=== PATIENT | female | born 1960 | race Caucasian/White ===

== ENCOUNTER 2017-02-18 20:03 | Emergency (ER) | payer BC ==
--- NOTE | 2017-02-18 20:13 | Emergency Department Record ---
History of Present Illness - General Chief Complaint: Hypertension Stated Complaint: HTN Time Seen by Provider: 02/18/17 20:13 Source: Patient, Family Mode of Arrival: Ambulatory Limitations: No limitations - History of Present Illness Initial Comments: 56 yo female presents with concerns about her blood pressure. She reports she has not seen a family doctor in seven years. For several months she has been having headaches. No vision changes. Yesterday she had some transient nausea and vomiting. Today those symptoms returned and she felt dizzy at that time. Those symptoms have resolved. No weakness, vision or speech changes. No coordination changes. No memory changes. Her daughter's boyfriend is an emergency medicine resident. He has been monitoring her BP and noted it has been elevated. No chest pain, shortness or breath, back pain or abdominal pain. MD Complaint: Dizziness, Lightheadedness -: Week(s) Timing: Gradual onset Description: Lightheadedness History of Same: No History of Trauma: No Severity: Mild Improves With: Nothing Worsens With: Nothing Associated Symptoms: Denies other symptoms - [place] Coma Scale Eye Response: (4) Open spontaneously Motor Response: (6) Obeys commands Verbal Response: (5) Oriented [place] Total: 15 - Symptoms of Stroke Baseline State: Baseline State - Related Data Previous Rx's Medication Instructions Recorded Hydrochlorothiazide 12.5 mg PO DAILY #30 capsule 02/18/17 Allergies Allergy/AdvReac Type Severity Reaction Status Date / Time Opioids - Morphine Analogues Allergy Unknown VOMITING Verified 02/18/17 20:22 Opioids-Methadone and Related Allergy Unknown VOMITING Verified 02/18/17 20:22 propoxyphene Allergy Unknown VOMITING Verified 02/18/17 20:22 latex Allergy RASH Verified 02/18/17 20:22 Review of Systems Constitutional: Denies: Chills, Fever, Malaise, Night sweats, Weakness Eyes: Denies: Eye discharge, Eye pain, Photophobia, Vision change ENT: Denies: Congestion, Throat pain Respiratory: Denies: Cough, Dyspnea, Hemoptysis, Stridor, Wheezes Cardiovascular: Denies: Arrhythmia, Chest pain, Dyspnea on exertion, Edema, Murmurs, Palpitations, Syncope Endocrine: Denies: Fatigue, Polydipsia, Polyuria Gastrointestinal: Reports: Nausea, Vomiting. Denies: Abdominal pain, Diarrhea Genitourinary: Denies: Dyspareunia, Dysuria, Urgency Musculoskeletal: Denies: Arthralgia, Back pain, Joint swelling, Myalgia Skin: Denies: Bruising, Change in color, Rash Neurological: Reports: Headache (intermittent for seveal months), Vertigo. Denies: Abnormal gait, Confusion, Numbness, Paresthesias, Seizure, Tingling, Tremors, Weakness Psychiatric: Denies: Anxiety Hematological/Lymphatic: Denies: Blood Clots, Easy bleeding, Easy bruising, Swollen glands Physical Exam - General General Appearance: Alert, Oriented x3, Cooperative, No acute distress, Other ( Well appearing, no distress, appears healthy as a general impression) Limitations: No limitations - Head Head exam: Normal inspection - Eye Eye exam: Normal appearance, PERRL, EOMI. negative: Conjunctival injection, Nystagmus, Periorbital swelling - ENT ENT exam: Normal exam, Mucous membranes moist Ear exam: Normal external inspection. negative: External canal tenderness Nasal Exam: Normal inspection. negative: Discharge, Sinus tenderness Mouth exam: Normal external inspection, Tongue normal Teeth exam: Normal inspection. negative: Dental caries Throat exam: Normal inspection. negative: Tonsillar erythema, Tonsillar exudate - Neck Neck exam: Normal inspection, Full ROM, Other (No bruits). negative: Lymphadenopathy, Tenderness, Thyromegaly - Respiratory Respiratory exam: Normal lung sounds bilaterally. negative: Respiratory distress - Cardiovascular Cardiovascular Exam: Regular rate, Normal rhythm, Normal heart sounds. negative : Diastolic murmur, Systolic murmur Peripheral Pulses: 2+: Radial (R), Radial (L) - GI/Abdominal GI/Abdominal exam: Soft. negative: Tenderness - Rectal Rectal exam: Deferred - exam: Deferred - Extremities Extremities exam: Normal inspection, Full ROM, Normal capillary refill. negative: Pedal edema, Tenderness - Back Back exam: Reports: Normal inspection, Full ROM. Denies: CVA tenderness (R), CVA tenderness (L), Muscle spasm, Rash noted, Tenderness - Neurological Neurological exam: Alert, CN II-XII intact, Normal gait, Oriented X3, Reflexes normal. negative: Altered, Motor sensory deficit - Psychiatric Psychiatric exam: Normal affect, Normal mood. negative: Agitated, Anxious - Skin Skin exam: Dry, Intact, Normal color, Warm Course Vital Signs 02/18/17 20:07 Pulse Rate [ 68 Pulse Ox Probe] Respiratory 20 Rate Blood Pressure 184/114 [Left Arm] Blood Pressure 174/120 [Right Arm] Pulse Ox 98 - Reevaluation(s) Reevaluation #1: Initial BP noted 02/18/17 20:26 Reevaluation #2: EKG NSR rate of 64, intervals normal, axis normal border left, ST normal, minimal poor R wave. No acute findings on EKG. 02/18/17 20:43 Reevaluation #3: The HCT was read as normal The CBC normal except WBC 12.9 The CMP was normal TSH is pending Repeat BP remains elevated We discussed the options of starting treatment for the BP while setting up referral for PCP 02/18/17 21:13 Medical Decision Making - Lab Data Result diagrams: 02/18/17 20:30 02/18/17 20:30 Disposition Disposition: Discharge Clinical Impression: Hypertension Qualifiers: Hypertension type: unspecified Qualified Code(s): I10 - Essential (primary) hypertension Disposition: Home, Self-Care Condition: (1) Good Instructions: Hypertension (ED) Additional Instructions: Call the family practice tomorrow for close follow up Return if you have any return of symptoms, new symptoms or concerns Keep a daily journal of a morning blood pressure to take with your to your new doctor appointment Prescriptions: Hydrochlorothiazide 12.5 mg PO DAILY #30 capsule Referrals: HORTENCIA RAPP M.D. [MEDICAL DOCTOR] - Forms: Patient Portal Access Time of Disposition: 21:31 Quality - Quality Measures Quality Measures: N/A, Headache - Headache: Neuroimaging Quality Measure: Measure #419: Overuse of Neuroimaging View Detail: Yes Neurological Exam: Patient had a normal neurological exam. [G9535] Headache: Use of Neuroimaging: CTA, CT, MRA or MRI Ordered w/Medical Reason [ G9536] Medical Reason for Exam: Change in Type of Headache - Blood Pressure Screening Does Patient Have Any of the Following: No, Active Dx of HTN Blood Pressure Classification: Hypertensive Reading Systolic Measurement: 158 Diastolic Measurement: 105 Screening for High Blood Pressure: < Pre-Hypertensive BP, F/U Documented > [ G8950] First Hypertensive Follow-up Interventions: Referral to alternative/primary care provider.
[2017-02-18 20:36] LABS: BASO % 0.5 % (0-6); EOS % 1.4 % (0-6); GRAN % 75.5 % (47-80); HEMATOCRIT 36.6 % (35.0-47.0); HEMOGLOBIN 12.7 gm/dl (11.6-16.0); LYMPH % 17.3 % (16-45); MEAN CELL VOLUME 90.8 fl (81-97); MEAN CORPUSCULAR HEMOGLOBIN 31.5 pg (27-33); MEAN CORPUSCULAR HGB CONC 34.7 g/dl (32-36); MEAN PLATELET VOLUME 9.2 fl (7.4-10.4); MONO % 5.3 % (0-9); PLATELET COUNT 317 K/uL (130-400); RED BLOOD COUNT 4.03 M/uL (3.80-5.40); RED CELL DISTRIBUTION WIDTH 12.2 % (11.5-14.5); WHITE BLOOD COUNT W/O DIFF 12.9 K/uL (4.2-12.2)
[2017-02-18 20:47] LABS: ALB/GLOB RATIO 1.5 (1.1-1.8); ALBUMIN 4.5 gm/dL (3.5-5.0); ALKALINE PHOSPHATASE 95 U/L (38-126); ALT/SGPT 37 U/L (9-52); ANION GAP 10.1 (7-16); AST/SGOT 21 U/L (14-36); BILIRUBIN,TOTAL 0.66 mg/dL (0.2-1.3); BLOOD UREA NITROGEN 15 mg/dL (7-17); CARBON DIOXIDE 23.9 mmol/L (22-30); CREATININE 0.9 mg/dL (0.52-1.04); EST GLOMERULAR FILTRATION RATE > 60 ml/min; GLUCOSE,RANDOM 103 mg/dL (70-110); TOTAL PROTEIN 7.6 gm/dL (6.3-8.2)
[2017-02-18 20:49] LABS: URINE APPEARANCE CLEAR; URINE BILIRUBIN NEGATIVE (NEGATIVE); URINE BLOOD MODERATE (NEGATIVE); URINE COLOR YELLOW; URINE GLUCOSE (UA) NEGATIVE (NEGATIVE); URINE KETONE NEGATIVE (NEGATIVE); URINE LEUKOCYTE ESTERASE NEGATIVE (NEGATIVE); URINE NITRITE NEGATIVE (NEGATIVE); URINE PROTEIN NEGATIVE (NEGATIVE); URINE UROBILINOGEN 0.2 E.U./dL (0.20 - 1.00)
[2017-02-18 21:21] LABS: URINE AMORPHOUS SEDIMENT 1+; URINE EPITHELIAL CELLS 0 - 2 (FEW); URINE WBC 0 - 2 (0-2/hpf)
[2017-02-18] MEDS: HYDROCHLOROTHIAZIDE 25 MG TABLET PO ONE (21:42)
--- NOTE | 2017-02-20 20:08 | CT SCAN REPORT ---
TECHNIQUE: CT brain without. COMPARISON: None. FINDINGS: The globes are intact. The paranasal sinuses and mastoid air cells are unremarkable. No displaced or depressed skull fracture. No intra or extraaxial hemorrhage. CT limited for the evaluation of acute infarct. No CT evidence for large or territorial acute infarct. No mass, mass effect, or midline shift. The ventricles are symmetric. Reed-white matter differentiation is preserved. IMPRESSION: NEGATIVE EXAM. JOB NUMBER: [id number] MTDD
== END 2017-02-18 21:47 | disposition home or self-care (01) ==
LOC: ER 20:03
DX: I10 Essential (primary) hypertension (principal); R42 Dizziness and giddiness
CPT/HCPCS: 70450; 80053; 81001; 84443; 85025; 93005; 93010; 99284

== ENCOUNTER 2017-03-12 10:38 | Emergency (ER) | payer BC ==
[2017-03-12] MEDS ORDERED: ASPIRIN 325 MG TABLET PO ONE (10:53)
--- NOTE | 2017-03-12 11:00 | Emergency Department Record ---
History of Present Illness - General Chief Complaint: Chest Pain Stated Complaint: CHEST PAIN Time Seen by Provider: 03/12/17 10:46 Source: Patient Mode of Arrival: Ambulatory Limitations: No limitations - History of Present Illness Initial Comments: The patient is here due to having vague CP off and on for about 4-5 weeks. It has gotten worse the last 3 days. She describes it as a sharp stabbing retrosternal pain that is nonradiating. She does have mild SOB and sweating with it sometimes but it sometimes gets better when she is up walking. The patient was recently started on BP medicines and was in the ER 3 weeks ago due to her BP and had a normal EKG. Today she was following up with her PCP and after telling them about her recent increase in pain had an EKG performed that was markedly abnormal. Presently she denies any CP, SOB, back pain, sweating or nausea. MD Complaint: Chest pain Onset/Timin -: Week(s) Onset: During exertion Pain Location: Substernal Severity: Moderate Severity scale (1-10): 7 Quality: Sharp Consistency: Intermittent, Now resolved Improves With: Movement Worsens With: Nothing Context: Other Treatments Prior to Arrival: None - Related Data Allergies Allergy/AdvReac Type Severity Reaction Status Date / Time Opioids - Morphine Analogues Allergy Unknown VOMITING Verified 03/12/17 10:41 Opioids-Methadone and Related Allergy Unknown VOMITING Verified 03/12/17 10:41 propoxyphene Allergy Unknown VOMITING Verified 03/12/17 10:41 latex Allergy RASH Verified 03/12/17 10:41 Travel Screening - Travel/Exposure Within Last 30 Days Have you traveled within the last 30 days?: No - Travel/Exposure Within Last Year Have you traveled outside the [place] in the last year?: No - Additonal Travel Details Have you been exposed to anyone with a communicable illness?: No - Travel Symptoms Symptom Screening: None Review of Systems Constitutional: Denies: Chills, Fever Eyes: Denies: Eye discharge ENT: Denies: Congestion Respiratory: Denies: Cough, Dyspnea Cardiovascular: Reports: Chest pain. Denies: Arrhythmia, Dyspnea on exertion Endocrine: Denies: Fatigue Gastrointestinal: Denies: Abdominal pain Genitourinary: Denies: Dysuria Musculoskeletal: Denies: Back pain Past Medical History - SOCIAL HISTORY Smoking Status: Never smoker Alcohol Use: Occasional Drug Use: None - RESPIRATORY Hx Respiratory Disorders: No - CARDIOVASCULAR Hx Cardio Disorders: Yes Hx Hypertension: Yes - NEURO Hx Neuro Disorders: No - GI Hx GI Disorders: No - Hx Genitourinary Disorders: No - ENDOCRINE Hx Endocrine Disorders: No - MUSCULOSKELETAL Hx Musculoskeletal Disorders: No - PSYCH Hx Psych Problems: No - HEMATOLOGY/ONCOLOGY Hx Hematology/Oncology Disorders: No Family Medical History Any Significant Family History?: Yes Hx Heart Disease: Father, Mother Hx Stroke: Father, Mother Physical Exam - General General Appearance: Alert, Oriented x3, Cooperative, No acute distress - Head Head exam: Atraumatic, Normocephalic, Normal inspection - Eye Eye exam: Normal appearance, PERRL - Neck Neck exam: Normal inspection, Full ROM. negative: Tenderness - Respiratory Respiratory exam: Normal lung sounds bilaterally. negative: Respiratory distress - Cardiovascular Cardiovascular Exam: Regular rate, Normal rhythm, Normal heart sounds - GI/Abdominal GI/Abdominal exam: Soft, Normal bowel sounds. negative: Tenderness - Extremities Extremities exam: Normal inspection, Full ROM, Normal capillary refill. negative: Tenderness - Neurological Neurological exam: Alert, Normal gait. negative: Abnormal gait, Motor sensory deficit Course Vital Signs 03/12/17 10:42 Temperature 98.3 F Pulse Rate 66 Respiratory 18 Rate Blood Pressure 173/101 Pulse Ox 99 - Reevaluation(s) Reevaluation #1: The patient is doing very well at this time. She denies any LANCE, CP, SOB, or CHENTE. Her Bp is 170/105 and she is resting comfortably. I did discuss the lab tests and issues with the patient and the need for further evaluation with a Telegraph Inspector and the patient would like to go to [facility]. I then did discuss the case with Dr. Gomez at [facility] and he does accept the patient as a direct admit. He would like a Head CT first to R/O a SAH and then would like the patient on Heparin. 03/12/17 11:48 Reevaluation #2: The patient is doing very well at this time. She denies any pain or discomfort and is resting comfortably. I did inform her of the neg Head CT. 03/12/17 12:19 Reevaluation #3: The patient is doing very well at this time. Her vitals are stable and she is resting comfortably with no pain or discomfort. We are still waiting on an inpatient bed at [facility]. 03/12/17 14:04 Medical Decision Making - Data Complexity MDM Data: Labs Ordered and/or Reviewed, X-Ray Ordered and/or Reviewed, EKG Ordered and/or Reviewed - Lab Data Result diagrams: 03/12/17 10:52 03/12/17 10:52 - EKG Data -: EKG Interpreted by Me EKG: Unchanged From Previous (NSR at 61, Inverted T waves II,III ,AVF, and V1-6. ) - Radiology Data Radiology results: Report reviewed (CXR: Heart size normal with tortuous aorta. Head CT: Neg.) Disposition Disposition: Transfer Clinical Impression: Unstable angina pectoris Disposition: Acute Care Hospital Transfer Transfer To: [facility] Reason For Transfer: [facility] Accepting Physician: Jason Time Discussed w/Accepting Physician: 12:15 Condition: (2) Stable Forms: Patient Portal Access Time of Disposition: 12:15 Quality - Quality Measures Quality Measures: N/A - Blood Pressure Screening View Details: Yes Does Patient Have Any of the Following: No Blood Pressure Classification: Pre-Hypertensive BP Reading Systolic Measurement: 145 Diastolic Measurement: 85 Screening for High Blood Pressure: < Pre-Hypertensive BP, F/U Documented > [ G8950] Pre-Hypertensive Follow-up Interventions: Referral to alternative/primary care provider.
[2017-03-12 11:02] LABS: BASO % 0.6 % (0-6); EOS % 1.8 % (0-6); GRAN % 65.9 % (47-80); HEMATOCRIT 38.1 % (35.0-47.0); HEMOGLOBIN 13.4 gm/dl (11.6-16.0); LYMPH % 24.1 % (16-45); MEAN CELL VOLUME 89.6 fl (81-97); MEAN CORPUSCULAR HEMOGLOBIN 31.5 pg (27-33); MEAN CORPUSCULAR HGB CONC 35.2 g/dl (32-36); MONO % 7.6 % (0-9); PLATELET COUNT 333 K/uL (130-400); RED BLOOD COUNT 4.25 M/uL (3.80-5.40); RED CELL DISTRIBUTION WIDTH 12.1 % (11.5-14.5); WHITE BLOOD COUNT W/O DIFF 8.3 K/uL (4.2-12.2)
[2017-03-12 11:14] LABS: ANION GAP 9.9 (7-16); BLOOD UREA NITROGEN 16 mg/dL (7-17); CARBON DIOXIDE 27.1 mmol/L (22-30); CREATINE PHOSPHOKINASE 54 U/L (30-135); CREATININE 0.8 mg/dL (0.52-1.04); EST GLOMERULAR FILTRATION RATE > 60 ml/min; GLUCOSE,RANDOM 104 mg/dL (70-110)
[2017-03-12 11:16] LABS: INR 0.9; PARTIAL THROMBOPLASTIN TIME 25.9 SECONDS (24.5-39.1); PROTHROMBIN TIME (PATIENT) 9.7 SECONDS (9.5-12.1)
[2017-03-12 11:26] LABS: CKMB 1.5 ug/L (0-6); TROPONIN I 0.039 ng/mL (0.00-0.034)
[2017-03-12] MEDS ORDERED: LISINOPRIL 10 MG TABLET PO ONE (11:33)
[2017-03-12] MEDS ORDERED: HEPARIN SODIUM 1000 UNIT/1 ML 10ML VIAL IVP ONE (11:35)
[2017-03-12] MEDS ORDERED: HEPARIN SODIUM/D5W 25,000 UNITS/500 ML BAG IV SCH (11:45)
--- NOTE | 2017-03-12 22:17 | RADIOLOGY REPORT ---
EXAM: CHEST AP or PA ONLY HISTORY: SHARP INTERMITTENT CHEST PAIN FOR FOUR DAYS. TECHNIQUE: AP sitting portable chest. COMPARISON: None. FINDINGS: Heart size is normal. Mild torsion of the aorta. Old left clavicular fracture. Lungs appear expanded with no acute infiltrate seen. No pleural effusion or pneumothorax evident. Some prominence of the left paraspinal stripe may just be related to some lipomatosis. Recommend comparison with old films. IMPRESSION: 1. MILD TORSION OF THE AORTA. 2. NO ACUTE INFILTRATE EVIDENT. 3. OLD LEFT CLAVICULAR FRACTURE. 4. PROMINENCE OF THE LEFT PARASPINAL STRIPE, PARTICULARLY AT THE LEVEL OF THE MID CHEST. THIS IS NONSPECIFIC AND RECOMMEND COMPARISON WITH OLD FILMS. JOB NUMBER: [id number] MTDD
--- NOTE | 2017-03-12 23:23 | CT SCAN REPORT ---
EXAM: CT SCAN HEAD WO CONTRAST HISTORY: FRONTAL HEADACHE. TECHNIQUE: Axial CT scan of the head performed without IV contrast. COMPARISON: Head CT 02/18/17. FINDINGS: No definite acute intracranial hemorrhage identified. No focal mass effect or midline shift apparent. No definite acute infarct or intracranial mass lesion is seen. Mild generalized atrophy as before. Visualized paranasal sinuses and mastoids all appear well aerated. If the patients neurologic symptoms persist, follow-up brain MRI may be useful for further evaluation, if not contraindicated. IMPRESSION: 1. MILD GENERALIZED ATROPHY. 2. THE REMAINDER OF THE EMERGENCY NONCONTRAST HEAD CT APPEARS NEGATIVE WITH NO DEFINITE ACUTE INTRACRANIAL HEMORRHAGE OR FOCAL MASS EFFECT IDENTIFIED. JOB NUMBER: [id number] MTDD
== END 2017-03-12 14:23 | disposition short-term general hospital (02) ==
LOC: ER 10:38
DX: I20.0 Unstable angina (principal); I10 Essential (primary) hypertension; R06.02 Shortness of breath
CPT/HCPCS: 99285 ×2; 96365; 96366; 96375; 82550; 85025; 85730; 85610; 82553; 84484; 80048; 71010; 70450; 93005; 93010; J3490

== ENCOUNTER 2018-03-08 10:56 | Emergency (ER) | payer BC ==
--- NOTE | 2018-03-08 11:26 | Emergency Department Record ---
History of Present Illness - General Chief Complaint: Back Pain/Injury Stated Complaint: BACK PAIN Time Seen by Provider: 03/08/18 11:25 Source: Patient, RN notes reviewed - History of Present Illness Initial Comments: lifting plants and develped back pain MD Complaint: Back pain Onset/Timin -: Days(s) Similar Symptoms Previously: No Place: Home Radiation: None Severity scale (1-10): 8 Quality: Sharp, Stabbing Consistency: Constant Improves With: None Worsens With: Supine Context: While lifting Associated Symptoms: Denies other symptoms Treatments Prior to Arrival: Acetaminophen Treatment Prior to Arrival Comment:: tylenol n@6am. - Related Data Previous Rx's Medication Instructions Recorded Cyclobenzaprine HCl [Flexeril] 10 mg PO TID #30 tablet 03/08/18 Naproxen [Naprosyn] 250 mg PO Q12H #20 tablet 03/08/18 Tramadol HCl [Ultram] 50 mg PO Q6H #12 tab 03/08/18 Allergies Allergy/AdvReac Type Severity Reaction Status Date / Time Opioids - Morphine Analogues Allergy Unknown VOMITING Unverified 06/15/17 09:23 Opioids-Methadone and Related Allergy Unknown VOMITING Unverified 06/15/17 09:23 propoxyphene Allergy Unknown VOMITING Unverified 06/15/17 09:23 latex Allergy RASH Unverified 06/15/17 09:23 Travel Screening - Travel/Exposure Within Last 30 Days Have you traveled within the last 30 days?: No Review of Systems Reviewed: No additional complaints except as noted below Constitutional: Reports: As per HPI. Denies: Chills, Fever, Malaise, Night sweats, Weakness, Weight change Eyes: Reports: As per HPI. Denies: Eye discharge, Eye pain, Photophobia, Vision change ENT: Reports: As per HPI. Denies: Congestion, Dental pain, Ear pain, Epistaxis , Hearing loss, Throat pain Respiratory: Reports: As per HPI. Denies: Cough, Dyspnea, Hemoptysis, Stridor, Wheezes Cardiovascular: Reports: As per HPI. Denies: Arrhythmia, Chest pain, Dyspnea on exertion, Edema, Murmurs, Orthopnea, Palpitations, Paroxysmal nocturnal dyspnea, Rheumatic Fever, Syncope Endocrine: Reports: As per HPI. Denies: Fatigue, Heat or cold intolerance, Polydipsia, Polyuria Gastrointestinal: Reports: As per HPI. Denies: Abdominal pain, Constipation, Diarrhea, Hematemesis, Hematochezia, Melena, Nausea, Vomiting Genitourinary: Reports: As per HPI. Denies: Abnormal menses, Discharge, Dyspareunia, Dysuria, Frequency, Hematuria, Incontinence, Retention, Urgency Musculoskeletal: Reports: As per HPI, Back pain (left lower back pain with radiation into the left leg). Denies: Arthralgia, Gout, Joint swelling, Myalgia , Neck pain Skin: Reports: As per HPI. Denies: Bruising, Change in color, Change in hair/ nails, Lesions, Pruritus, Rash Neurological: Reports: As per HPI. Denies: Abnormal gait, Confusion, Headache, Numbness, Paresthesias, Seizure, Tingling, Tremors, Vertigo, Weakness Psychiatric: Reports: As per HPI. Denies: Anxiety, Auditory hallucinations, Depression, Homicidal thoughts, Suicidal thoughts, Visual hallucinations Hematological/Lymphatic: Reports: As per HPI. Denies: Anemia, Blood Clots, Easy bleeding, Easy bruising, Swollen glands Past Medical History - SOCIAL HISTORY Smoking Status: Never smoker Alcohol Use: None Drug Use: None - RESPIRATORY Hx Respiratory Disorders: No - CARDIOVASCULAR Hx Cardio Disorders: Yes Hx Hypertension: Yes - NEURO Hx Neuro Disorders: No - GI Hx GI Disorders: No - Hx Genitourinary Disorders: No - ENDOCRINE Hx Endocrine Disorders: No - MUSCULOSKELETAL Hx Musculoskeletal Disorders: No - PSYCH Hx Psych Problems: No - HEMATOLOGY/ONCOLOGY Hx Hematology/Oncology Disorders: No Family Medical History Any Significant Family History?: Yes Hx Heart Disease: Father, Mother Hx Stroke: Father, Mother Physical Exam - General General Appearance: Alert, Oriented x3, Cooperative, Moderate distress - Head Head exam: Normal inspection - Eye Eye exam: Normal appearance, PERRL Pupils: Normal accommodation - ENT ENT exam: Normal exam, Mucous membranes moist, Normal external ear exam, Normal orophraynx, TM's normal bilaterally Ear exam: Normal external inspection. negative: External canal tenderness Nasal Exam: Normal inspection. negative: Discharge, Sinus tenderness Mouth exam: Normal external inspection, Tongue normal Teeth exam: Normal inspection. negative: Dental caries Throat exam: Normal inspection. negative: Tonsillar erythema, Tonsillar exudate - Neck Neck exam: Normal inspection, Full ROM. negative: Tenderness - Respiratory Respiratory exam: Normal lung sounds bilaterally. negative: Respiratory distress - Cardiovascular Cardiovascular Exam: Regular rate, Normal rhythm, Normal heart sounds - GI/Abdominal GI/Abdominal exam: Soft, Normal bowel sounds. negative: Tenderness - Rectal Rectal exam: Deferred - exam: Deferred - Extremities Extremities exam: Normal inspection, Full ROM, Normal capillary refill. negative: Tenderness - Back Back exam: Reports: Normal inspection, Full ROM, Muscle spasm, Tenderness. Denies: Rash noted - Neurological Neurological exam: Alert, Normal gait, Oriented X3, Reflexes normal - Psychiatric Psychiatric exam: Normal affect, Normal mood - Skin Skin exam: Dry, Intact, Normal color, Warm Course Vital Signs 03/08/18 11:06 Temperature 97.5 F L Pulse Rate 66 Respiratory 18 Rate Blood Pressure 151/102 Pulse Ox 99 Disposition Clinical Impression: Acute lumbar myofascial strain Qualifiers: Encounter type: initial encounter Qualified Code(s): S39.012A - Strain of muscle, fascia and tendon of lower back, initial encounter Disposition: Home, Self-Care Condition: (1) Good Instructions: Low Back Strain (ED) Additional Instructions: alternate between heat and ice Prescriptions: Cyclobenzaprine HCl [Flexeril] 10 mg PO TID #30 tablet Naproxen [Naprosyn] 250 mg PO Q12H #20 tablet Tramadol HCl [Ultram] 50 mg PO Q6H #12 tab Forms: Patient Portal Access Quality - Quality Measures Quality Measures: N/A - Blood Pressure Screening Does Patient Have Any of the Following: No, Active Dx of HTN Blood Pressure Classification: Hypertensive Reading Systolic Measurement: 151 Diastolic Measurement: 102 Screening for High Blood Pressure: Patient Exclusion, Hx of HTN [G9744]
[2018-03-08] MEDS ORDERED: KETOROLAC 60 MG/2 ML VIAL IM STA (11:32)
[2018-03-08] MEDS ORDERED: ORPHENADRINE CITRATE 60MG/2ML VIAL IM ONE (11:32)
== END 2018-03-08 12:03 | disposition home or self-care (01) ==
LOC: ER 10:56
DX: S39.012A Strain of muscle, fascia and tendon of lower back, initial encounter (principal); X50.0XXA Overexertion from strenuous movement or load, initial encounter; Y92.009 Unspecified place in unspecified non-institutional (private) residence as the place of occurrence of the external cause
CPT/HCPCS: 96372; 99283; J1885; J2360

== ENCOUNTER 2018-09-30 08:16 | Day surgery (SDC) | payer BC ==
[2018-09-30] MEDS ORDERED: LIDOCAINE 2% MDV (20MG/ML) 20ML VIAL IV ONE (08:17)
[2018-09-30] MEDS ORDERED: PROPOFOL 10 MG/ML VIAL IV ONE (08:17)
--- NOTE | 2018-10-01 08:00 | Operative Note ---
DATE OF SURGERY: 09/30/2018 OPERATION: COLONOSCOPY with cold snare polypectomy. PREOPERATIVE DIAGNOSIS: Family history of colon cancer in sister and initial screening exam. POSTOPERATIVE DIAGNOSIS: Descending colon polyp. SPECIMENS: Descending colon polyp. ESTIMATED BLOOD LOSS: Minimum. COMPLICATIONS: None apparent. PREPARATION QUALITY: Excellent. PROCEDURE: After informed consent was obtained from the patient, she was placed in the left lateral decubitus position in the endoscopy suite, sedated and monitored by the department of anesthesia. Digital rectal exam was unremarkable. A well-lubricated [id number] colonoscope was inserted into the rectum and advanced to the cecum. Preparation quality was excellent. The cecum, cecal bulb, ascending colon, and transverse colon were unremarkable. In the proximal descending colon there was a 5 mm sessile polyp removed in piecemeal fashion with a cold snare. Minimal bleeding was noted. The remainder of the descending, sigmoid colon, and rectum were unremarkable. J-turn views of the anorectum were unremarkable. The endoscope was straightened, the rectal ampulla deflated, and the endoscope was removed. RECOMMENDATIONS: The patient should resume her medications and diet. I would recommend a repeat exam in 5 years with a final determination to be based on tissue histology. Even if it is hyperplastic, with her family history, a 5-year followup would be indicated at that point. As always, thank you for allowing me to participate in the healthcare of your patients. CC: MD ALTAGRACIA Galicia
== END 2018-09-30 10:10 | disposition home or self-care (01) ==
LOC: HOP 08:16
PROVIDERS: ATTEND Internal Medicine Gastroenterology
DX: Z12.11 Encounter for screening for malignant neoplasm of colon (principal); Z80.0 Family history of malignant neoplasm of digestive organs; D12.4 Benign neoplasm of descending colon; I10 Essential (primary) hypertension; E78.00 Pure hypercholesterolemia, unspecified